=== PATIENT | male | born 1950 | race Hispanic/Latino ===

== ENCOUNTER 2023-06-28 08:53 | Emergency (ER) | payer MEDICARE, OTHER ==
[~2023-06-28] VITALS: Ht 188 cm; Wt 96.2 kg
[~2023-06-28 08:53] MED LIST: CEPHALEXIN500 MG PO
[2023-06-28 08:59] VITALS: O2SAT 96
== END 2023-06-28 09:10 | disposition home or self-care (01) ==
LOC: FSED 08:55
DX: Z48.02 Encounter for removal of sutures (principal); I10 Essential (primary) hypertension; E11.9 Type 2 diabetes mellitus without complications; E78.5 Hyperlipidemia, unspecified
CPT/HCPCS: 99282; S0630